=== PATIENT | female | born 1950 | race Caucasian/White ===

== ENCOUNTER 2018-07-31 06:44 | Emergency (ER) | payer MEDICARE, OTHER ==
--- NOTE | 2018-07-31 07:24 | EDM.PDOC ---
ED HPI GENERAL MEDICAL PROBLEM - General Chief Complaint: ENT Problem Stated Complaint: DIZZY Time Seen by Provider: 07/31/18 07:14 Source of Information: Reports: Patient History Limitations: Reports: No Limitations - History of Present Illness INITIAL COMMENTS - FREE TEXT/NARRATIVE: The patient presents with concern for waking up this morning with feeling like the world is spinning around her, slightly sweaty, vomited a couple of times. Had difficulty walking and needed to hold onto the wall in order to do so. She still feels a significant spinning sensation at this time. It is worse when she moves her head, and she notes that that also causes significant nausea. She has vomited once since coming to the ER. She has never had anything like this before. She denies any chest pain, shortness of breath, dyspnea on exertion or change in activity level in the past few weeks. 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 She denies any headache, changes in vision today other than spinning. She has not had a fever, she does not have any pain in her neck, she also has not had any diarrhea and she felt just fine last night. Hasn't eaten any unusual foods. No recent travel to anywhere. Past medical history significant for hypertension on lisinopril and hyperlipidemia on rosuvastatin. Does not have to 2 diabetes. Never smoker and no drug use, occasional social alcohol. Her mom is alive and well at age 92, had a pacemaker placed a couple years ago. Her brothers and sisters are likewise all healthy. Her dad unfortunately of depression in his 40's. - Related Data Allergies Allergy/AdvReac Type Severity Reaction Status Date / Time prochlorperazine Allergy Difficulty Verified 07/31/18 07:41 [From Compazine] Swallowing Home Meds: Home Meds Lisinopril 20 mg PO DAILY 07/31/18 [History] Ondansetron [Zofran] 4 - 8 mg PO Q6H PRN 7 Days #24 tab 07/31/18 [Rx] Rosuvastatin Calcium 10 mg PO DAILY 07/31/18 [History] Sertraline HCl 150 mg PO DAILY 07/31/18 [History] Past Medical History Cardiovascular History: Reports: High Cholesterol, Hypertension Endocrine/Metabolic History: Denies: Diabetes, Type II Social & Family History - Family History Other Family History: mother healthy at age 92 except has a pacemaker father in 40's --committed suicide brothers and sisters, healthy - Tobacco Use Smoking Status *Q: Never Smoker - Alcohol Use Alcohol Use History: Yes Alcohol Use Comment: social --rarely - Recreational Drug Use Recreational Drug Use: No - Living Situation & Occupation Living situation: Reports: Occupation: Employed Social History Comment: runs a daycare, 8 kids. [age] years (50th anniverary in Nov 2018). daughter in [place] ED ROS GENERAL - Review of Systems Review Of Systems: See Below Constitutional: Denies: Fever, Chills, Malaise, Weakness HEENT: Reports: Rhinitis. Denies: Ear Pain, Eye Pain, Throat Pain, Vision Change Respiratory: Reports: Cough. Denies: Shortness of Breath, Wheezing, Pleuritic Chest Pain Cardiovascular: Denies: Chest Pain, Blood Pressure Problem, Claudication, Dyspnea on Exertion, Palpitations, PND, Syncope Endocrine: Reports: No Symptoms GI/Abdominal: Reports: Nausea, Vomiting. Denies: Abdominal Pain, Constipation, Diarrhea, Hematemesis, Hematochezia : Reports: No Symptoms Musculoskeletal: Reports: No Symptoms Skin: Reports: No Symptoms Neurological: Denies: Confusion, Headache, Numbness, Pre-Existing Deficit, Seizure, Syncope, Tingling, Trouble Speaking, Weakness Hematologic/Lymphatic: Denies: Easy Bleeding, Easy Bruising Immunologic: Reports: Seasonal Allergy ED EXAM, GENERAL - Physical Exam Exam: See Below Free Text/Narrative:: General: Alert, very pleasant and not acutely distressed. HEENT tympanic members are clear bilaterally with normal light reflex and no fluid noted behind the eardrum. Pupils are equal and reactive, conjunctiva are clear. Facial muscles are symmetric and she has equal sensation intact on both sides of her face. No signs of head trauma. It is without erythema, mucous membranes are moist there is no tonsillar enlargement or exudates. Uvula and tongue are midline. Slight nasal congestion is noted, no sinus tenderness, no cervical lymphadenopathy. Neck is movable but movement of her head does exacerbate her symptoms. Lungs are clear throughout with no wheezes or crackles and heart is regular rate and rhythm, I do not hear murmur. Abdomen is positive bowel sounds , soft nondistended nontender with no rebound or guarding. Peripheral pulses +2 out of 4 in both the upper and lower extremities and she has no lower extremity edema. No calf tenderness. Neurologic exam shows cranial nerve II through XII function to be grossly intact , able to perform vestibular functions such as finger to nose and rapid alternating movements without difficulty, gait is only minimally altered. She has equal strength +5 out of 5 in both the upper and lower extremities. Her sensation is also equal on both sides of her body. HiNTs exam: left nystagmus with far lateral leftward gaze. The rest of testing is within normal limits. Diks-hallpike is negative for any nystagmus. EKG INTERPRETATION Rhythm: NSR Pelion: Normal P-Wave: Present QRS: Normal ST-T: Normal Course - Vital Signs Text/Narrative:: Initial impression, vertigo by history, does not seem to have any syncope. Minimal risk factors for cardiovascular disease or CVA. Her neuro exam is normal at this time, hence exam performed later. She does still have significant nausea and has vomited once, so will give her oral Zofran. Labs and chest x-ray ordered, EKG does not show any acute abnormalities. Last Recorded V/S: Last Vital Signs Temp 35.7 C 07/31/18 07:32 Pulse 79 07/31/18 06:44 Resp 15 07/31/18 07:00 BP 158/64 H 07/31/18 07:00 Pulse Ox 96 07/31/18 07:00 - Orders/Labs/Meds Orders: Active Orders 24 hr Category Date Time Status EKG Documentation Completion [RC] ASDIRECTED Care 07/31/18 06:45 Active Sodium Chloride 0.9% [Saline Flush] Med 07/31/18 07:44 Active 10 ml FLUSH ASDIRECTED PRN Saline Lock Insert [OM.PC] Routine Oth 07/31/18 07:44 Ordered EKG 12 Lead [EK] Routine Ther 07/31/18 06:45 Ordered Medication Orders Sodium Chloride (Saline Flush) 10 ml FLUSH ASDIRECTED PRN PRN Reason: Keep Vein Open Last Admin: 07/31/18 07:44 Dose: 10 ml Labs: Laboratory Tests 07/31/18 07/31/18 07/31/18 Range/Units 07:45 07:45 07:45 WBC 9.0 (4.5-12.0) X10-3/uL RBC 5.15 (3.23-5.20) x10(6)uL Hgb 15.0 (11.5-15.5) g/dL Hct 44.3 (30.0-51.3) % MCV 86.0 (80-96) fL MCH 29.1 (27.7-33.6) pg MCHC 33.9 (32.2-35.4) g/dL RDW 12.8 (11.5-15.5) % Plt Count 198 (125-369) X10(3)uL Neut % (Auto) 79.3 (46-82) % Lymph % (Auto) 13.2 (13-37) % Prentiss % (Auto) 6.0 (4-12) % Eos % (Auto) 0 L (1.0-5.0) % Baso % (Auto) 1 (0-2) % Neut # (Auto) 7.2 (1.6-8.3) # Lymph # (Auto) 1.2 (0.6-5.0) # Prentiss # (Auto) 0.5 (0.0-1.3) # Eos # (Auto) 0.0 (0.0-0.8) # Baso # (Auto) 0.1 (0.0-0.2) # PT 9.5 (8.7-11.1) INR 0.98 (0.89-1.13) Sodium 141 (135-145) mmol/L Potassium 3.9 (3.5-5.3) mmol/L Chloride 104 (100-110) mmol/L Carbon Dioxide 24 (21-32) mmol/L BUN 18 (7-18) mg/dL Creatinine 1.0 (0.55-1.02) mg/dL Est Cr Clr Drug Dosing 40.63 mL/min Estimated GFR (MDRD) 55 L (>60) BUN/Creatinine Ratio 18.0 (9-20) Glucose 166 H (80-116) mg/dL Calcium 9.0 (8.6-10.2) mg/dL Troponin I (<0.017-0.056) ng/mL C-Reactive Protein (0.5-0.9) mg/dL 07/31/18 Range/Units 07:45 WBC (4.5-12.0) X10-3/uL RBC (3.23-5.20) x10(6)uL Hgb (11.5-15.5) g/dL Hct (30.0-51.3) % MCV (80-96) fL MCH (27.7-33.6) pg MCHC (32.2-35.4) g/dL RDW (11.5-15.5) % Plt Count (125-369) X10(3)uL Neut % (Auto) (46-82) % Lymph % (Auto) (13-37) % Prentiss % (Auto) (4-12) % Eos % (Auto) (1.0-5.0) % Baso % (Auto) (0-2) % Neut # (Auto) (1.6-8.3) # Lymph # (Auto) (0.6-5.0) # Prentiss # (Auto) (0.0-1.3) # Eos # (Auto) (0.0-0.8) # Baso # (Auto) (0.0-0.2) # PT (8.7-11.1) INR (0.89-1.13) Sodium (135-145) mmol/L Potassium (3.5-5.3) mmol/L Chloride (100-110) mmol/L Carbon Dioxide (21-32) mmol/L BUN (7-18) mg/dL Creatinine (0.55-1.02) mg/dL Est Cr Clr Drug Dosing mL/min Estimated GFR (MDRD) (>60) BUN/Creatinine Ratio (9-20) Glucose (80-116) mg/dL Calcium (8.6-10.2) mg/dL Troponin I < 0.017 L (<0.017-0.056) ng/mL C-Reactive Protein 0.8 (0.5-0.9) mg/dL Meds: Medications Generic Name Dose Route Start Last Admin Trade Name Freq PRN Reason Stop Dose Admin Sodium Chloride 10 ml 07/31/18 07:44 07/31/18 07:44 Saline Flush FLUSH 10 ml ASDIRECTED PRN Administration Keep Vein Open Discontinued Medications Generic Name Dose Route Start Last Admin Trade Name Freq PRN Reason Stop Dose Admin Ondansetron HCl 4 mg 07/31/18 07:29 07/31/18 07:37 Zofran IVPUSH 07/31/18 07:30 4 mg ONETIME ONE Administration - Re-Assessments/Exams Free Text/Narrative Re-Assessment/Exam: 07/31/18 chest x-ray does not show any acute abnormalities, initial labs returned with normal electrolytes. CBC machine is down and so we do not have the test result yet. She feels much better after the zofran though still a slight spinning sensation. No hearing changes, was able to get up to the bathroom and gait is ok. HiNTs exam - left nystagmus with far left lateral eye movement, reproducible. Negative test of skew - good. Head impulse test difficult as patient tends to guard her neck, but was also normal. Suspect a vestibular neuritis, probably viral. Negative diks-hallpike and not quite correct for BPPV. Given normal neuro exam and above findings unlikely to have had stroke. Discussed with patient and her that no testing is 100% , but overall results are reassuring. She also has very minimal risk factors for CVD. Free Text/Narrative Re-Assessment/Exam: 07/31/18 CBC still pending. Patient is feeling better and interested in discharge if possible. Discussed pros and cons of admission to hospital for observation vs going home, they [place] here and she and her agree she could easily come back if needed. We discussed meclizine prescription although at that point I would recommend just zofran for the nausea , as that seemed to help significantly, and there is some small potential for meclizine to slow recovery. They are also planning to fly to [place] tomorrow for 4 days, though reconsidering after this morning. will discharge, can call for CBC results later. Discussed return precautions and all questions answered. Departure - Departure Time of Disposition: 10:30 Disposition: Home, Self-Care 01 Condition: Good Clinical Impression: Acute vestibular neuritis Qualifiers: Laterality: left Qualified Code(s): H81.22 - Vestibular neuronitis, left ear - Discharge Information *PRESCRIPTION DRUG MONITORING PROGRAM REVIEWED*: Not Applicable *COPY OF PRESCRIPTION DRUG MONITORING REPORT IN PATIENT LUMA: Not Applicable Prescriptions: Ondansetron [Zofran] 4 - 8 mg PO Q6H PRN 7 Days #24 tab PRN Reason: Nausea/Vomiting Instructions: Ondansetron tablets, Dizziness Referrals: Griffin Salgado MD [Primary Care Provider] - Forms: ED Department Discharge Additional Instructions: some mild dizziness is expected today like you have had already this morning. Based on your labs and exam I think that it is a viral infection of your inner ear which is responsible for balance. It will slowly improve over time- like the next few days. Air pressure changes from flying on an airplane might make it worse. zofran provided to help with the nausea be sure to drink lots of fluids today and take care when moving around house symptoms that would prompt need to return to ER: chest pain, shortness of breath, candi if have arm, jaw, back, abdominal discomfort along with it feeling like the world is going black or you might pass out (syncope) -- very different from the spinning feeling recurrent vomiting and not able to keep liquid down down inability to be at home safely, for example, because the vertigo (spinning) is so severe you are not able to walk fever (100.7F or greater) headache, candi with change in vision the two scary things that often look like this are heart attack and stroke. You do not seem to have any symptoms of these today, however, if something changes that would be cause for re-evaluation, as it is hard to be 100% sure. recommend make appointment for followup ER with primary care provider you should also be rechecked if symptoms do not improve in the next few days - My Orders Last 24 Hours: My Active Orders 07/31/18 06:45 EKG Documentation Completion [RC] ASDIRECTED EKG 12 Lead [EK] Routine 07/31/18 07:44 Sodium Chloride 0.9% [Saline Flush] 10 ml FLUSH ASDIRECTED PRN Saline Lock Insert [OM.PC] Routine - Assessment/Plan Last 24 Hours: My Active Orders 07/31/18 06:45 EKG Documentation Completion [RC] ASDIRECTED EKG 12 Lead [EK] Routine 07/31/18 07:44 Sodium Chloride 0.9% [Saline Flush] 10 ml FLUSH ASDIRECTED PRN Saline Lock Insert [OM.PC] Routine
[2018-07-31] MEDS ORDERED: Ondansetron 4 MG/2 ML SDV IVPUSH ONE (07:29)
[2018-07-31] MEDS ORDERED: Sodium Chloride 0.9% 10 ML Syringe FLUSH PRN (07:44)
--- NOTE | 2018-07-31 11:09 | CR ---
INDICATION: Cough, shortness of breath. CHEST: PA and lateral views of the chest were obtained 07/31/18 - no comparisons. The heart appeared somewhat prominent in the area of the left ventricle - mild enlargement of the heart is noted. Bridging hyperostotic changes are noted in the lower middle thoracic spine. Overlying EKG leads are noted. Evidence of exogenous obesity is noted. No evidence of CHF, infiltrate, or effusion was seen. Prominent AP diameter and minimal flattening of diaphragm leaves with mild hyperaeration raise question of COPD. IMPRESSION: 1. No acute process. 2. Probable ASHD. 3. Exogenous obesity. 4. Possible COPD - correlate clinically. 5. DJD spine. MTDD
== END 2018-07-31 10:30 | disposition home or self-care (01) ==
LOC: FB.ED 06:44
DX: H81.22 Vestibular neuronitis, left ear (principal); I10 Essential (primary) hypertension; E78.5 Hyperlipidemia, unspecified; Z88.8 Allergy status to other drugs, medicaments and biological substances; Z79.899 Other long term (current) drug therapy
CPT/HCPCS: 36415; 71046; 80048; 84484; 85025; 85610; 86140; 93005; 96374; 99285; J2405

== ENCOUNTER 2022-08-18 07:01 | Emergency (ER) | payer MEDICARE, OTHER ==
[2022-08-18] MEDS ORDERED: Sodium Chloride 0.9% 10 ML Syringe FLUSH PRN (07:11)
[2022-08-18] MEDS ORDERED: Ondansetron 4 MG/2 ML SDV IVPUSH ONE (07:22)
[2022-08-18] MEDS ORDERED: Meclizine 25 MG Tab PO ONE (07:22)
[2022-08-18] MEDS ORDERED: Sodium Chloride 0.9% 1,000 ML IV SCH (07:30)
[2022-08-18 07:53] LABS: BASOPHILS ABSOLUTE AUTO 0.1 x10-3/uL (0.0-0.1); BASOPHILS PERCENT AUTO 0.6 % (0.2-1.5); EOSINOPHILS PERCENT AUTO 0.2 % (0.6-8.1); HEMATOCRIT 39.9 % (34.2-48.2); HEMOGLOBIN 13.8 g/dL (11.4-15.5); LYMPHOCYTES ABSOLUTE AUTO 1.5 x10-3/uL (1.0-4.4); LYMPHOCYTES PERCENT AUTO 16.4 % (18.4-52.1); MEAN CORPUSCULAR HEMOGLOBIN 30.5 pg (23.9-33.9); MEAN CORPUSCULAR HGB CONC 34.7 g/dL (31.9-34.8); MEAN CORPUSCULAR VOLUME 87.9 fL (76.7-100.5); MEAN PLATELET VOLUME 6.8 fL (7.1-12.4); MONOCYTES ABSOLUTE AUTO 0.8 x10-3/uL (0.3-1.0); MONOCYTES PERCENT AUTO 8.5 % (4.4-15.7); NEUTROPHILS ABSOLUTE AUTO 6.8 x10-3/uL (1.5-6.3); NEUTROPHILS PERCENT AUTO 74.3 % (30.8-76.2); PLATELET COUNT,PLT 208 x10(3)uL (151-488); RED BLOOD CELL COUNT 4.54 x10(6)uL (3.60-5.20); RED CELL DISTRIBUTION WIDTH 14.6 % (12.3-16.5); WHITE BLOOD CELL COUNT,WBC 9.1 x10-3/uL (3.0-10.3)
[2022-08-18 07:56] LABS: BLOOD UREA NITROGEN,BUN 13 mg/dL (7-18); BUN/CREATININE RATIO 14.4 (9-20); CALCIUM 9.2 mg/dL (8.6-10.2); CARBON DIOXIDE,CO2 28 mmol/L (21-32); CHLORIDE,CL 105 mmol/L (100-110); CREATININE 0.9 mg/dL (0.55-1.02); ESTIMATED GFR 68 mL/min (>60); GLUCOSE RANDOM 169 mg/dL (80-116); POTASSIUM,K 3.7 mmol/L (3.5-5.3); SODIUM,NA 140 mmol/L (135-145)
[2022-08-18 08:07] LABS: A/G RATIO 1.3; ALBUMIN 3.8 g/dL (3.2-4.6); ALKALINE PHOSPHATASE 129 IU/L (56-112); AMYLASE 36 U/L (25-115); BILIRUBIN TOTAL 1.7 mg/dL (0.1-1.3); PROTEIN TOTAL,TP 6.8 g/dL (6.0-8.0)
[2022-08-18 08:09] LABS: ALANINE AMINOTRANSFERASE,ALT 268 U/L (12-36); ASPARTATE AMNIOTRANSFERASE,AST 417 IU/L (5-25)
[2022-08-18] MEDS ORDERED: Iopamidol 755 Mg/ML 100 ML Bottle IV ONE (08:33)
[2022-08-18 08:52] LABS: BILIRUBIN,URINE NEGATIVE (NEGATIVE); GLUCOSE,URINE NORMAL (NORMAL); KETONES,URINE NEGATIVE (NEGATIVE); LEUKOCYTE ESTERASE,URINE NEGATIVE (NEGATIVE); NITRITE,URINE NEGATIVE (NEGATIVE); OCCULT BLOOD,URINE NEGATIVE (NEGATIVE); PROTEIN,URINE NEGATIVE (NEGATIVE); UROBILINOGEN,URINE 1 mg/dL (NEGATIVE)
[2022-08-18 08:57] LABS: APPEARANCE,URINE CLEAR (CLEAR); COLOR,URINE YELLOW (YELLOW); RBC,URINE NOT SEEN (0-5)
[2022-08-18 08:58] LABS: BACTERIA,URINE MANY (NS); SQUAMOUS EPITHELIAL CELLS,UR NOT SEEN (NS,R,O); WBC,URINE 0-5 (0-5)
[2022-08-19 07:52] LABS: BASOPHILS PERCENT AUTO 0.8 % (0.2-1.5); EOSINOPHILS PERCENT AUTO 0.4 % (0.6-8.1); HEMATOCRIT 40.9 % (34.2-48.2); HEMOGLOBIN 14.3 g/dL (11.4-15.5); LYMPHOCYTES ABSOLUTE AUTO 1.3 x10-3/uL (1.0-4.4); LYMPHOCYTES PERCENT AUTO 24.2 % (18.4-52.1); MEAN CORPUSCULAR HEMOGLOBIN 30.7 pg (23.9-33.9); MEAN CORPUSCULAR HGB CONC 34.9 g/dL (31.9-34.8); MEAN CORPUSCULAR VOLUME 87.9 fL (76.7-100.5); MEAN PLATELET VOLUME 6.5 fL (7.1-12.4); MONOCYTES ABSOLUTE AUTO 0.6 x10-3/uL (0.3-1.0); MONOCYTES PERCENT AUTO 10.6 % (4.4-15.7); NEUTROPHILS ABSOLUTE AUTO 3.4 x10-3/uL (1.5-6.3); PLATELET COUNT,PLT 199 x10(3)uL (151-488); RED BLOOD CELL COUNT 4.65 x10(6)uL (3.60-5.20); RED CELL DISTRIBUTION WIDTH 14.6 % (12.3-16.5); WHITE BLOOD CELL COUNT,WBC 5.3 x10-3/uL (3.0-10.3)
[2022-08-19 07:58] LABS: BLOOD UREA NITROGEN,BUN 7 mg/dL (7-18); BUN/CREATININE RATIO 7.8 (9-20); CALCIUM 9.2 mg/dL (8.6-10.2); CARBON DIOXIDE,CO2 30 mmol/L (21-32); CHLORIDE,CL 104 mmol/L (100-110); CREATININE 0.9 mg/dL (0.55-1.02); EST CRCL DRUG DOSING (CG) 42.64 mL/min; ESTIMATED GFR 68 mL/min (>60); GLUCOSE RANDOM 129 mg/dL (80-116); POTASSIUM,K 3.9 mmol/L (3.5-5.3); SODIUM,NA 142 mmol/L (135-145)
[2022-08-19 08:10] LABS: A/G RATIO 1.2; ALBUMIN 3.7 g/dL (3.2-4.6); ALKALINE PHOSPHATASE 239 IU/L (56-112); BILIRUBIN TOTAL 4.1 mg/dL (0.1-1.3); PROTEIN TOTAL,TP 6.8 g/dL (6.0-8.0)
[2022-08-19 08:11] LABS: ALANINE AMINOTRANSFERASE,ALT 955 U/L (12-36); ASPARTATE AMNIOTRANSFERASE,AST 674 IU/L (5-25)
== END 2022-08-19 08:05 ==
LOC: FB.ED 07:01
DX: K80.20 Calculus of gallbladder without cholecystitis without obstruction (principal); K76.0 Fatty (change of) liver, not elsewhere classified; E78.00 Pure hypercholesterolemia, unspecified; I10 Essential (primary) hypertension; Z79.899 Other long term (current) drug therapy; Z88.8 Allergy status to other drugs, medicaments and biological substances
CPT/HCPCS: 36415; 74177; 80053; 81001; 82150; 82947; 83690; 84484; 85025; 93005; 96374; 99285; A9270; J2405; J7030; Q9967